=== PATIENT | male | born 1950 | race Caucasian/White ===

== ENCOUNTER 2017-03-03 09:35 | Emergency (ER) | payer OTHER ==
[2017-03-03] MEDS ORDERED: LIDOCAINE HCL 2% 20 ML VIAL ONE (10:16)
--- NOTE | 2017-03-03 11:05 | ER NURSING DOCUMENTATION ---
Nurse[facility] Notes [facility] Name:Casey Batres Age:66 yrs Sex:Male :1950 Arrival Date:03/03/2017 Time:09:35 Bed3 Private MD:Darnell Diallo Diagnosis:Ear Laceration Presentation: 03/03 09:43 Acuity: FAWN 4 lc 09:51 Presenting complaint: Patient states: WAS STRUCK IN THE HEAD BY A WOOD WALL THEY WERE lc PUTTING UP AND HAS LAC TO LEFT EAR. NO LOC, NECK NON-TENDER, NO OTHER INJURY. Transition of care: Home. Notified ED Physician of patient's arrival and CC. 09:51 Method Of Arrival: Private Vehicle lc Triage Assessment: 09:55 General: Appears in no apparent distress, Behavior is appropriate for age, cooperative. lc Pain: Complains of pain in left ear Pain At worst was 5 out of 10 on a pain scale. Quality of pain is described as aching, throbbing, Pain began 2 hours ago. Neuro: Level of Consciousness is awake, alert, Oriented to person, place, time, event, Gait is steady, Speech is normal. Injury Description: Laceration sustained to pinna of left ear is clean, full thickness, 2.6 to 7.5 cm long, was sustained 1-2 hours ago. is bleeding a small amount. Historical: - Allergies: Codeine; - Home Meds: 1. Dilantin Oral 2. Coumadin Oral 3. Simvastatin Oral - PMHx: SEIZURES; BLOOD CLOTS; - PSHx: BOWEL RESECTION; Appendectomy; HERNIA REPAIR; - Tetanus: < 10 years. - Ebola Screening: : Patient negative for fever greater than or equal to 101.5 degrees Fahrenheit, and additional compatible Ebola Virus Disease symptoms. Patient denies exposure to infectious person. Patient denies travel to an Ebola-affected area in the 21 days before illness onset. No symptoms or risks identified at this time. . - Immunization history: Flu Vaccine >1 year. - Social history: Smoking status: Patient states former smoker of tobacco. Screenin:58 Infectious Disease Risk None. Abuse screen: Denies threats or abuse. Denies injuries lc from another. Nutritional screening: No deficits noted. Assessment: 09:58 See Triage Assessment done by same RN. Vital Signs: 09:57 BP 141 / 84; Pulse 58; Resp 16; Temp 98.1; Pulse Ox 93% on R/A; Weight 86.18 kg; Height lc 6 ft. 1 in. (185.42 cm); Pain 4/10; 11:03 Resp 18; Pain 1/10; lc 09:57 Body Mass Index 25.07 (86.18 kg, 185.42 cm) ED Course: 09:36 Patient arrived in ED. ds 09:37 Darnell Diallo is Private Physician. ds 09:40 Ismael Solomon MD is Attending Physician. 09:43 Patience Payne RN is Primary Nurse. 09:43 Triage completed. 09:58 Valuables Remains with patient Patient has correct armband on for positive lc identification. Bed in low position. Call light in reach. Adult w/ patient. 10:30 Wound care to laceration located on pinna of left ear was cleaned with soap and water, lc Irrigation Normal Saline. 11:01 Assist Provider Assist provider with laceration repair on pinna of left ear that was lc between 2.6 to 7.5 cm using sutures. Set up tray. Performed by Ismael Solomon MD Dressed with 4X4 Patient tolerated well. Administered Medications: 10:30 Drug: Lidocaine (2 %) 10 ml; Route: Infiltration; Site: affected area; 11:04 Follow up: Response: Pain is decreased 10:56 Drug: Bacitracin Ointment (500 unit/g) 1 application; Route: Topical; Site: affected lc area; 11:04 Follow up: Response: No adverse reaction Outcome: 10:40 Discharge ordered by . 11:03 Discharged to home ambulatory, with significant other. 11:03 Condition: stable 11:03 Discharge Assessment: Patient awake, alert and oriented x 3. No cognitive and/or functional deficits noted. Patient verbalized understanding of disposition instructions. Patient awake and alert. Oriented to person, place and time. Patient verbalized understanding of disposition instructions. Patient has no functional deficits. 11:03 Discharge instructions given to patient, significant other, Instructed on discharge instructions, follow up and referral plans. wound care, HEAD INJURY INSTRUCTIONS DUE TO COUMADIN Demonstrated understanding of instructions, medications. 11:05 Patient left the ED. 03/04 17:03 Discharge F/U Call: Unable to reach: left voicemail: cb Signatures: Chiara Carranza RN RN cb Patience Payne RN RN lc Ginny, Maura, Reg Reg Ismael Rothman MD MD jm
--- NOTE | 2017-03-03 11:05 | ER PHYSICIAN DOCUMENTATION ---
Physician Documentation [facility] Name:Casey Batres Age:66 yrs Sex:Male :1950 Arrival Date:03/03/2017 Time:09:35 Bed3 Private MD:Darnell Diallo ED, John Disposition: 03/03/17 10:40 Discharged to Home/Self Care. Impression: Ear Laceration. - Condition is Good. - Discharge Instructions: LACERATION, All. - Medical Reconciliation form form. - Follow up: Emergency Department; When: 10 days; Reason: Staple/Suture removal. - Problem is new. - Symptoms have improved. HPI: 03/03 11:10 This 66 yrs old Male presents to ER via Private Vehicle with complaints of jm Ear Injury - LEFT. 11:10 The patient presents with a laceration, 5 cm(s), simple. The complaints affect the jm pinna of left ear. Onset: The symptom(s)/episode began/occurred just prior to arrival. Associated signs and symptoms: Pertinent negatives: lightheadedness, nausea, vomiting. Severity of symptoms: in the emergency department the symptoms are unchanged. The patient has not experienced similar symptoms in the past. Pt was his in there side of the head by a board. The board sliced his ear. Pt denies PADILLA, nausea, LOC, or vision changes. . Historical: - Allergies: Codeine; - Home Meds: 1. Dilantin Oral 2. Coumadin Oral 3. Simvastatin Oral - PMHx: SEIZURES; BLOOD CLOTS; - PSHx: BOWEL RESECTION; Appendectomy; HERNIA REPAIR; - Tetanus: < 10 years. - Ebola Screening: : Patient negative for fever greater than or equal to 101.5 degrees Fahrenheit, and additional compatible Ebola Virus Disease symptoms. Patient denies exposure to infectious person. Patient denies travel to an Ebola-affected area in the 21 days before illness onset. No symptoms or risks identified at this time. . - Immunization history: Flu Vaccine >1 year. - Social history: Smoking status: Patient states former smoker of tobacco. ROS: 11:10 Constitutional: Negative for fever. jm 11:10 ENT: Positive for ear pain, of the pinna of left ear and left ear- behind the pinna. 11:10 Neck: Negative for injury or acute deformity, pain with movement. 11:10 Skin: Positive for laceration(s), Negative for rash. 11:10 Neuro: Negative for dizziness, headache, loss of consciousness. Exam: 11:10 Constitutional: The patient appears alert, awake. jm 11:10 ENT: External ear(s): laceration, that is linear, approximately 5 cm(s), to the pinna of left ear, Ear canal(s): are normal, TM's: are normal. 11:10 Neck: C-spine: appears grossly normal, Thyroid: appears normal. 11:10 Neuro: Mentation: is normal, Cranial nerves: CN II- XII are normal as tested, Cerebellar function: normal finger to nose testing, Motor: strength is 5/5 in all extremities, Sensation: is normal, Gait: is steady. Vital Signs: 09:57 BP 141 / 84; Pulse 58; Resp 16; Temp 98.1; Pulse Ox 93% on R/A; Weight 86.18 kg; Height lc 6 ft. 1 in. (185.42 cm); Pain 4/10; 11:03 Resp 18; Pain 1/10; lc 09:57 Body Mass Index 25.07 (86.18 kg, 185.42 cm) lc Laceration: 11:10 Wound Repair of 5cm ( 2.0in ) subcutaneous laceration to pinna of left ear- posterior jm pinna. Distal neuro/vascular/tendon intact. Anesthesia: Wound infiltrated with 10 mls of 2% lidocaine. Wound prep: Wound irrigation by nurse. Skin closed with 16 5-0 Ethilon using Running sutures. Dressed with Open to air. Patient tolerated well. MDM: 09:40 Patient medically screened. 11:10 Differential diagnosis: laceration. Data reviewed: vital signs, nurses notes, and as a result, I will discharge patient. Counseling: I had a detailed discussion with the patient and/or guardian regarding: the historical points, exam findings, and any diagnostic results supporting the discharge/admit diagnosis. ED course: No indication for CT0H. Pt sewed and DC'd home. . [id number] 10:40 Order name: Wound Care; Complete Time: 10:56 Dispensed Medications: 10:30 Drug: Lidocaine (2 %) 10 ml; Route: Infiltration; Site: affected area; 11:04 Follow up: Response: Pain is decreased lc 10:56 Drug: Bacitracin Ointment (500 unit/g) 1 application; Route: Topical; Site: affected lc area; 11:04 Follow up: Response: No adverse reaction lc Signatures: Patience Payne RN RN lc Ismael Solomon MD MD jm
== END 2017-03-03 11:05 | disposition home or self-care (01) ==
LOC: ER 09:35
DX: S01.312A Laceration without foreign body of left ear, initial encounter (principal); W22.8XXA Striking against or struck by other objects, initial encounter; Y93.H3 Activity, building and construction; Z86.718 Personal history of other venous thrombosis and embolism; Z79.01 Long term (current) use of anticoagulants; Z79.899 Other long term (current) drug therapy
CPT/HCPCS: 12052; 99283

== ENCOUNTER 2017-03-13 09:05 | Emergency (ER) | payer OTHER ==
--- NOTE | 2017-03-13 09:34 | ER NURSING DOCUMENTATION ---
Nurse's Notes [facility] Name:Casey Batres Age:66 yrs Sex:Male :1950 Arrival Date:03/13/2017 Time:09:05 Bed1 Private MD:Darnell Diallo Diagnosis:Suture Removal Presentation: 03/13 09:09 Acuity: FAWN 5 [facility] [place] 09:30 Presenting complaint: Patient states: suture removal. Transition of care: Home. [facility] [place] 09:30 Method Of Arrival: Private Vehicle [facility] [place] Historical: - Allergies: Codeine; - Home Meds: 1. Dilantin Oral 2. Coumadin Oral 3. Simvastatin Oral - PMHx: SEIZURES; BLOOD CLOTS; - PSHx: BOWEL RESECTION; APPENDECTOMY; Vital Signs: 09:31 BP 139 / 76; Pulse 77; Resp 16; Temp 98.1; Pulse Ox 95% on R/A; [facility] [place] ED Course: 09:06 Patient arrived in ED. ama 09:07 Darnell Diallo is Private Physician. ama 09:09 Triage completed. [facility] [place] 09:30 Mirian Park, RN is Primary Nurse. [facility] [place] Administered Medications: No medications were administered Outcome: 09:32 Discharged to home ambulatory. sc1 09:32 Condition: stable 09:32 No charge visit due to suture removal. 09:33 Discharge ordered by MD. [facility] [place] 09:33 Patient left the ED. [facility] [place] Signatures: Mirian Park, RN RN tn1 [place], Reg Reg ama
== END 2017-03-13 09:34 | disposition home or self-care (01) ==
LOC: ER 09:05
DX: Z48.02 Encounter for removal of sutures (principal); S01.312D Laceration without foreign body of left ear, subsequent encounter